=== PATIENT | female | born 1965 | race Two or more races ===

== ENCOUNTER 2018-07-30 19:07 | Emergency (ER) | payer SELFPAY ==
[2018-07-30 19:20] VITALS: BMI 27.3
--- NOTE | 2018-07-30 19:24 | PDOC ---
Rapid Medical Evaluation Chief Complaint: Headache Time Seen by Provider: 07/30/18 19:19 Medical Evaluation: 07/30/18 19:19 I have performed a brief in-person evaluation of this patient. The patient presents with a chief complaint of: headache x 3 days. no relief with tylenol / motrin or 1 - 20mg Lasix today. some numbness to hand monday but resolved, no mental or behavioral changes. Pertinent physical exam findings: pale, quiet, A&O x 3 I have ordered the following: CT head. The patient will proceed to the ED for further evaluation 07/30/18 19:23 Discharge Disposition - Diagnosis Headache Qualifiers: Headache type: unspecified Headache chronicity pattern: unspecified pattern Intractability: not intractable Qualified Code(s): R51 - Headache - Referrals - Patient Instructions - Post Discharge Activity
[2018-07-30] MEDS ORDERED: METOCLOPRAMIDE HCL INJECTION 10 MG/2 ML VIAL IVPB ONE (20:40)
[2018-07-30] MEDS ORDERED: SODIUM CHLORIDE 1,000 ML IV STA (20:40)
[2018-07-30 20:52] LABS: BASO % 0.9 % (0-2.0); EOS % 0.8 % (0-4.5); HEMATOCRIT 39.8 % (32.4-45.2); HEMOGLOBIN 13.6 GM/dL (10.7-15.3); LYMPH % 40.1 % (8-40); MCH 26.9 pg (25.7-33.7); MCHC 34.2 g/dl (32.0-36.0); MEAN CELL VOLUME 78.8 fl (80-96); MONO % 7.4 % (3.8-10.2); NEUT % 50.8 % (42.8-82.8); PLATELET COUNT 248 K/MM3 (134-434); RBC 5.06 M/mm3 (3.60-5.2); RDW 14.5 % (11.6-15.6); WHITE BLOOD COUNT 10.3 K/mm3 (4.0-10.0)
--- NOTE | 2018-07-30 21:03 | PDOC ---
History of Present Illness - General Chief Complaint: Headache Stated Complaint: Headache Time Seen by Provider: 07/30/18 19:19 History Source: Patient Exam Limitations: No Limitations - History of Present Illness Initial Comments: 07/30/18 20:59 Best Contact: PCP: None here. Pt resides in [place] Pmhx:Denies Pshx: Denies Allergies:NKDA FH:0 Social Hx: Cigarettes/ 0 Alcohol/ 0 Drugs/0 52-year-old female presents to the emergency department complaining of 5/10 dull nonradiating intermittent headache to the top of her head. Patient denies exacerbating or alleviating factors. Patient denies lightheadedness, dizziness, nausea/vomiting, fever/chills, facial pain, neck stiffness/pain, back pain, chest pain, shortness of breath, abdominal pains, flank pains, urinary symptoms , extremity numbness or tingling sensation. Patient states she hardly drank any fluids today because she was running multiple errands all day. Patient states similar symptoms when she doesn't ingest a lot of fluids during the day. While in the main emergency department, patient adamantly refuses any CT head without contrast. Approximately 1-1/2 hours later in the emergency department, patient states the pain has subsided tremendously to 2/10 bandlike frontal headache Past History - Past Medical History Allergies/Adverse Reactions: Allergies Allergy/AdvReac Type Severity Reaction Status Date / Time No Known Allergies Allergy Verified 07/30/18 19:20 COPD: No - Suicide/Smoking/Psychosocial Hx Smoking History: Never smoked Review of Systems - Review of Systems Able to Perform ROS?: Yes Comments:: 07/30/18 21:02 CONSTITUTIONAL: Absent: fever, chills, diaphoresis, generalized weakness, malaise, loss of appetite HEENT: Absent: rhinorrhea, nasal congestion, throat pain, throat swelling, difficulty swallowing, mouth swelling, ear pain, eye pain, visual Changes CARDIOVASCULAR: Absent: chest pain, loss of consciousness, palpitations, irregular heart rate, peripheral edema RESPIRATORY: Absent: cough, shortness of breath, dyspnea with exertion, orthopnea, wheezing, stridor, hemoptysis GASTROINTESTINAL: Absent: abdominal pain, abdominal distension, nausea, vomiting, diarrhea, constipation, melena, hematochezia GENITOURINARY: Absent: dysuria, frequency, urgency, hesitancy, hematuria, flank pain, genital pain MUSCULOSKELETAL: Absent: myalgia, arthralgia, joint swelling SKIN: Absent: rash, itching, pallor HEMATOLOGIC/IMMUNOLOGIC: Absent: easy bleeding, easy bruising, lymphadenopathy, frequent infections ENDOCRINE: Absent: unexplained weight gain, unexplained weight loss, heat intolerance, cold intolerance NEUROLOGIC: +barbosa Absent: focal weakness or paresthesias, dizziness, unsteady gait, seizure, mental status changes, bladder or bowel incontinence PSYCHIATRIC: Absent: anxiety, depression, suicidal or homicidal ideation, hallucinations. Is the patient limited Syriac proficient: No *Physical Exam - Vital Signs Last Vital Signs Temp Pulse Resp BP Pulse Ox 98.0 F 95 H 18 152/91 98 07/30/18 19:16 07/30/18 19:16 07/30/18 19:16 07/30/18 19:16 07/30/18 19:16 - Physical Exam Comments: 07/30/18 21:03 GENERAL: Well developed, well nourished. Awake and alert. No acute distress. HEENT: Normocephalic, atraumatic. PERRLA, EOMI. No conjunctival pallor. Sclera are non- icteric. Moist mucous membranes. Oropharynx is clear. NECK: Supple. Full ROM. No JVD. Carotid pulses 2+ and symmetric, without bruits. No thyromegaly. No lymphadenopathy. CARDIOVASCULAR: Regular rate and rhythm. No murmurs, rubs, or gallops. Distal pulses are 2+ and symmetric. PULMONARY: No evidence of respiratory distress. Lungs clear to auscultation bilaterally. No wheezing, rales or rhonchi. ABDOMINAL: Soft. Non-tender. Non-distended. No rebound or guarding. No organomegaly. Normoactive bowel sounds. MUSCULOSKELETAL Normal range of motion at all joints. No bony deformities or tenderness. No CVA tenderness. EXTREMITIES: No cyanosis. No clubbing. No edema. No calf tenderness. SKIN: Warm and dry. Normal capillary refill. No rashes. No jaundice. NEUROLOGICAL: Alert, awake, appropriate. Cranial nerves 2-12 intact. No deficits to light touch and temperature in face, upper extremities and lower extremities. No motor deficits in the in face, upper extremities and lower extremities. Normoreflexic in the upper and lower extremities. Normal speech. Toes are down- going bilaterally. Gait is normal without ataxia. PSYCHIATRIC: Cooperative. Good eye contact. Appropriate mood and affect. ED Treatment Course - LABORATORY CBC & Chemistry Diagram: 07/30/18 20:42 07/30/18 20:42 Progress Note - Progress Note Progress Note: 1hrs: right arm: 136/68 P:72 Pt is pain free *DC/Admit/Observation/Transfer Diagnosis at time of Disposition: Headache Qualifiers: Headache type: unspecified Headache chronicity pattern: unspecified pattern Intractability: not intractable Qualified Code(s): R51 - Headache - Discharge Dispostion Disposition: HOME Condition at time of disposition: Stable Decision to Admit order: No - Referrals Referrals: Mitesh Newton DO [Staff Physician] - Dinesh Donald MD [Staff Physician] - - Patient Instructions Printed Discharge Instructions: DI for Headache Additional Instructions: You refused the CAT scan of your head without any contrast Your blood pressure upon discharge was 136/68 with a pulse of 72 You are pain-free upon discharge from the emergency department It is important that you drink plenty of fluids daily Follow-up with the neurologist and internal medicine physicians listed on your discharge Return back to the ER for severe/persistent or worsening symptoms - Post Discharge Activity
[2018-07-30] MEDS ORDERED: METOCLOPRAMIDE HCL INJECTION 10 MG/2 ML VIAL ONE (21:15)
[2018-07-30 21:36] LABS: ALBUMIN 3.8 g/dl (3.4-5.0); ALK PHOS 61 U/L (45-117); ANION GAP 7 MMOL/L (8-16); BILIRUBIN,TOTAL 0.2 mg/dL (0.2-1); BLOOD UREA NITROGEN 9 mg/dL (7-18); CALCIUM 8.9 mg/dL (8.5-10.1); CHLORIDE 105 mmol/L (98-107); CO2 28 mmol/L (21-32); CREATININE 0.9 mg/dL (0.55-1.3); GLUCOSE,RANDOM 110 mg/dL (74-106); POTASSIUM 3.9 mmol/L (3.5-5.1); SGOT/AST 13 U/L (15-37); SGPT/ALT 20 U/L (13-61); SODIUM 140 mmol/L (136-145); TOT PROT 7.8 g/dl (6.4-8.2)
[2018-07-30 21:49] VITALS: BP 136/72; PULSE 88; TEMP 98.1
== END 2018-07-30 22:28 | disposition home or self-care (01) ==
LOC: JER 19:07
PROC: 3E033GC Introduction of Other Therapeutic Substance into Peripheral Vein, Percutaneous Approach (ICD-10-PCS; principal; 2018-07-30)
DX: R51 Headache (principal)
CPT/HCPCS: 36415; 80053; 85025; 99281-25; J7030

== ENCOUNTER 2018-09-10 01:35 | Emergency (ER) | payer OTHER ==
[2018-09-10 01:45] VITALS: BP 153/82; PULSE 65; TEMP 98.3; BMI 28.3
[2018-09-10] MEDS ORDERED: MECLIZINE HCL 25 MG TABLET (FP) PO ONE ×2 (02:15→05:07)
[2018-09-10] MEDS ORDERED: ONDANSETRON 4 MG/2 ML VIAL IVPUSH ONE (02:15)
[2018-09-10] MEDS ORDERED: SODIUM CHLORIDE 0.9% 1000 ML INFUS.BAG IV ONE (02:16)
[2018-09-10] MEDS ORDERED: ONDANSETRON 4 MG/2 ML VIAL ONE (02:28)
[2018-09-10] MEDS ORDERED: MECLIZINE HCL 25 MG TABLET (FP) ONE ×2 (02:28→05:09)
[2018-09-10 02:35] LABS: BASO % 0.6 % (0-2.0); EOS % 0.7 % (0-4.5); HEMATOCRIT 36.7 % (32.4-45.2); HEMOGLOBIN 12.6 GM/dL (10.7-15.3); LYMPH % 32.9 % (8-40); MCH 26.8 pg (25.7-33.7); MCHC 34.3 g/dl (32.0-36.0); MEAN CELL VOLUME 78.3 fl (80-96); MEAN PLT VOLUME 9.2 fl (7.5-11.1); NEUT % 59.8 % (42.8-82.8); PLATELET COUNT 207 K/MM3 (134-434); RBC 4.69 M/mm3 (3.60-5.2); RDW 14.8 % (11.6-15.6); WHITE BLOOD COUNT 8.5 K/mm3 (4.0-10.0)
--- NOTE | 2018-09-10 02:39 | PDOC ---
Attending Attestation - Resident Resident Name: Jacques Saha - ED Attending Attestation I have performed the following: I have examined & evaluated the patient, The case was reviewed & discussed with the resident, I agree w/resident's findings & plan, Exceptions are as noted - HPI HPI: 09/10/18 02:36 52 yo F with ho htn and hld recently on new meds since 3 weeks ago, here today with complaints of vertigo. no f/c no headache. no focal weakness.describes spinning sensation, worse with turning and rolling over in bed. no n/v no gait disturbance. no headache. no change to vision. no ho prior vertigo. - Physicial Exam PE: 09/10/18 02:38 Awake alert no acute distress lungs are clear bilaterally heart is regular no murmurs rubs or gallops abdomen is soft and nontender skin is warm and dry no rash neurologically the patient is 5 out of 5 all 4 extremities. Cranial nerves II through XII are intact. [id number] is normal alternating hand movements is normal gait is normal speech is clear patient has a positive Kassie-Hallpike to the right with horizontal nystagmus following - Medical Decision Making 09/10/18 02:38 Patient has classic positional vertigo. However due to recent medications she was recently started on blood pressure and high cholesterol medicines we'll obtain CT head to rule out CVA will treat with meclizine basic lab work to rule out electrolyte abnormalities or anemia IV hydration and antiemetics and reassess 09/10/18 05:11 pt feels improved with meclizine. will dc with fu with nuerology. ct head negative. labs unremarkable. Heart Score/ECG Review #1 General ECG Interpretation: Sinus Rhythm, Normal Rate (65), Normal Intervals, No acute ischemic changes (TWI III AVF , V3 - V5)
--- NOTE | 2018-09-10 02:58 | PDOC ---
History of Present Illness - General Chief Complaint: Lightheaded Stated Complaint: DIZZY Time Seen by Provider: 09/10/18 01:54 History Source: Patient Exam Limitations: Language Barrier - History of Present Illness Initial Comments: 52 yo F who denies having any medical history presents to the ED with on and off dizziness which she describes as room spinning since this morning. The patient woke up and before she could get out of bed she felt like the room would not stop spinning. This has never happened before today. When the patient moves her head to the left the spinning sensation worsens. She has not felt nauseous or vomitted today. She also denies having a headache here in the ER or any feelings of numbness, tingling, or chills. She denies recent fevers, chills, or infections. Denies chest pain, SOB, or difficulty breathing. Denies dysuria, frequency, urgency. Denies falling down, hitting her head or any LOC. PCP: Froylan Whaley Allergies: NKA, NKDA Social Hx: Denies smoking, drinking, illicit drug usage. Past History - Past Medical History Allergies/Adverse Reactions: Allergies Allergy/AdvReac Type Severity Reaction Status Date / Time No Known Allergies Allergy Verified 09/10/18 01:39 Home Medications: Ambulatory Orders NK [No Known Home Medication] 07/30/18 COPD: No - Immunization History Immunization Up to Date: Yes - Suicide/Smoking/Psychosocial Hx Smoking History: Never smoked Have you smoked in the past 12 months: No Information on smoking cessation initiated: No Hx Alcohol Use: No Drug/Substance Use Hx: No Review of Systems - Review of Systems Able to Perform ROS?: No (Language barrier) *Physical Exam - Vital Signs Last Vital Signs Temp Pulse Resp BP Pulse Ox 98.3 F 65 18 153/82 99 09/10/18 01:39 09/10/18 01:39 09/10/18 01:39 09/10/18 01:39 09/10/18 01:39 - Physical Exam Comments: GENERAL: Well-appearing, well-nourished. No apparent distress. HEENT: Normocephalic, atraumatic. PERRL, EOM intact. CARDIOVASCULAR: Normal S1, S2. Regular rate and rhythm. PULMONARY: Clear to auscultation bilaterally. ABDOMEN: Soft, non-distended, non-tender. EXTREMITIES: Normal ROM in all four extremities. No gross deformities. SKIN: Warm, dry. No rash NEUROLOGICAL: Positive yefri hallpike maneuver. No focal neurological deficits. Moderate Sedation - Procedure Monitoring Vital Signs: Procedure Monitoring Vital Signs Temperature 98.3 F 09/10/18 01:39 Pulse Rate 65 09/10/18 01:39 Respiratory Rate 18 09/10/18 01:39 Blood Pressure 153/82 09/10/18 01:39 O2 Sat by Pulse Oximetry (%) 99 09/10/18 01:39 ED Treatment Course - LABORATORY CBC & Chemistry Diagram: 09/10/18 02:19 09/10/18 02:19 - ADDITIONAL ORDERS Additional order review: 09/10/18 02:19 RBC 4.69 MCV 78.3 L MCHC 34.3 RDW 14.8 MPV 9.2 Neutrophils % 59.8 Lymphocytes % 32.9 Monocytes % 6.0 Eosinophils % 0.7 Basophils % 0.6 - Medications Given in the ED: ED Medications Discontinued Medications Generic Name Dose Route Start Last Admin Trade Name Deonq PRN Reason Stop Dose Admin Meclizine HCl 25 mg 09/10/18 02:15 09/10/18 02:33 Antivert - PO 09/10/18 02:16 25 mg ONCE ONE Administration Ondansetron HCl 4 mg 09/10/18 02:15 09/10/18 02:33 Zofran Injection IVPUSH 09/10/18 02:16 4 mg ONCE ONE Administration Sodium Chloride 1,000 ml 09/10/18 02:16 09/10/18 02:33 Normal Saline - IV 09/10/18 02:17 1,000 ml ONCE ONE Administration Medical Decision Making - Medical Decision Making 52 yo F who denies having any medical history presents to the ED with on and off dizziness which she describes as room spinning since this morning. DDx IBNLT: BPPV, vestibular migraine, labrynthitis, postural hypotension, menieree disease, stroke/cva/tia, complex migraine. Plan: Labs, Head Ct, meclizine, zofran, ekg, re-assess. Patient had a positive yefri-hallpike maneuver suggesting this is likely BPPV. Will give meclizine and see how she feels afterwards. Head CT negative. Patient feels better after meclizine. Will DC with Neuro FU and a script for meclizine. *DC/Admit/Observation/Transfer Diagnosis at time of Disposition: BPPV (benign paroxysmal positional vertigo) - Discharge Dispostion Disposition: HOME Condition at time of disposition: Improved Decision to Admit order: No - Referrals Referrals: Jovana Galeano MD [Primary Care Provider] - Mitesh Newton DO [Staff Physician] - - Patient Instructions Printed Discharge Instructions: Benign Paroxysmal Positional Vertigo Additional Instructions: You came into the emergency room with dizziness. You had a positive physical exam test called the yefri hallpike maneuver which suggests that you have BPPV - please see attached handout for further explanation. We are sending a prescription for meclizine to your pharmacy, please make sure to go and pick it up. Make sure to schedule an appointment with a neurologist in the next 3 to 5 days. Come back to the ER if your pain worsens, you have a severe headache or any other new, serious, or worsening concerns. Thank you for coming to the [facility] ER. We hope you feel better soon! Print Language: DANISH - Post Discharge Activity
[2018-09-10 03:03] LABS: ALBUMIN 3.6 g/dl (3.4-5.0); ALK PHOS 59 U/L (45-117); ANION GAP 9 MMOL/L (8-16); BILIRUBIN,TOTAL 0.2 mg/dL (0.2-1); BLOOD UREA NITROGEN 9 mg/dL (7-18); CALCIUM 8.5 mg/dL (8.5-10.1); CHLORIDE 106 mmol/L (98-107); CO2 24 mmol/L (21-32); CREATININE 0.8 mg/dL (0.55-1.3); GLUCOSE,RANDOM 111 mg/dL (74-106); POTASSIUM 4.1 mmol/L (3.5-5.1); SGOT/AST 15 U/L (15-37); SGPT/ALT 19 U/L (13-61); SODIUM 138 mmol/L (136-145); TOT PROT 7.5 g/dl (6.4-8.2)
--- NOTE | 2018-09-10 15:42 | EKG ---
Test Reason : Blood Pressure : / mmHG Vent. Rate : 065 BPM Atrial Rate : 065 BPM P-R Int : 162 ms QRS Dur : 076 ms QT Int : 412 ms P-R-T Axes : 046 013 -02 degrees QTc Int : 428 ms NORMAL SINUS RHYTHM NONSPECIFIC T WAVE ABNORMALITY ABNORMAL ECG NO PREVIOUS ECGS AVAILABLE Confirmed by ADAMA SPENCE MD ([id number]) on 09/10/2018 3:41:59 PM Referred By: Confirmed By:ADAMA SPENCE MD
== END 2018-09-10 05:18 | disposition home or self-care (01) ==
LOC: JER 01:35
PROC: 3E033GC Introduction of Other Therapeutic Substance into Peripheral Vein, Percutaneous Approach (ICD-10-PCS; principal; 2018-09-10)
PROC: 3E0337Z Introduction of Electrolytic and Water Balance Substance into Peripheral Vein, Percutaneous Approach (ICD-10-PCS; 2018-09-10)
DX: H81.10 Benign paroxysmal vertigo, unspecified ear (principal)
CPT/HCPCS: 36415; 70450-TC; 80053; 82550; 84484; 85025; 93005; 93010; 99282-25; J7030